=== PATIENT | female | born 1995 | race Caucasian/White ===

== ENCOUNTER 2023-09-10 17:24 | Emergency (ER) | payer OTHER ==
[~2023-09-10] VITALS: Ht 162.6 cm; Wt 106.1 kg
[2023-09-10 17:30] VITALS: BP 145/93; PULSE 77; RESP 17; TEMP 97.8; O2SAT 99
[2023-09-10] MEDS ORDERED: IBUP-1842 PO (17:51)
[2023-09-10] MEDS ORDERED: ACET-10509 PO (17:51)
[2023-09-10 19:22] LABS: FLU A ANTIGEN negative (NEGATIVE); FLU B ANTIGEN NEGATIVE (NEGATIVE)
== END 2023-09-10 18:24 | disposition home or self-care (01) ==
LOC: MED 17:24
DX: J06.9 Acute upper respiratory infection, unspecified (principal); Z20.822 Contact with and (suspected) exposure to COVID-19; E11.9 Type 2 diabetes mellitus without complications; I10 Essential (primary) hypertension; Z79.4 Long term (current) use of insulin; Z79.899 Other long term (current) drug therapy
CPT/HCPCS: 99283

== ENCOUNTER 2024-01-05 21:05 | Emergency (ER) | payer OTHER ==
[~2024-01-05] VITALS: Ht 152.4 cm; Wt 96.6 kg
[~2024-01-05 21:05] MED LIST: ACET-10509 PO; IBUP-1842 PO
[2024-01-05 21:44] VITALS: BP 127/67; PULSE 81; RESP 18; TEMP 98.5; O2SAT 98
[2024-01-06] MEDS: ACETAMINOPHEN EXTRA STRENGTH 500 MG TAB PO ONE (01:40)
[2024-01-06 02:00] LABS: BASOPHILS # (AUTO) 0.1 K/uL (0.00-0.22); BASOPHILS % (AUTO) 0.7 % (0.0-2.0); EOSINOPHILS # (AUTO) 0.2 K/uL (0-0.4); EOSINOPHILS % (AUTO) 2.3 % (0.0-4.0); HEMATOCRIT 36.5 % (36-48); HEMOGLOBIN 12.2 g/dL (12.0-16.0); LYMPHOCYTES # (AUTO) 4.1 K/uL (2.5-16.5); LYMPHOCYTES % (AUTO) 40.4 % (20.5-51.1); MEAN CORPUSCULAR HEMOGLOBIN 30 pg (27-31); MEAN CORPUSCULAR HGB CONC 34 g/dL (33-37); MEAN CORPUSCULAR VOLUME 89.5 fL (80-94); MONOCYTES # (AUTO) 0.6 K/uL (0.8-1.0); MONOCYTES % (AUTO) 6.1 % (1.7-9.3); NEUTROPHILS # (AUTO) 5.1 K/uL (1.8-7.7); NEUTROPHILS % (AUTO) 50.5 % (42.2-75.2); PLATELET COUNT (AUTO) 381 K/uL (140-450); RED BLOOD CELL COUNT(AUTO) 4.08 MIL/uL (4.20-5.40); RED CELL DISTRIBUTION WIDTH 14.2 % (11.6-13.7); WHITE BLOOD COUNT (AUTO) 10.1 K/uL (4.8-10.8)
[2024-01-06 02:31] LABS: ANION GAP 11.2 (8-16); CALCIUM 9.6 mg/dL (8.5-10.1); CARBON DIOXIDE 28.6 mmol/L (21-32); CREATININE 0.7 mg/dL (0.6-1.3); POTASSIUM 3.8 mmol/L (3.5-5.1)
[2024-01-06 02:50] VITALS: O2SAT 98
[2024-01-06] MEDS: KETOROLAC 30 MG/ML VIAL IM ONE (02:51)
== END 2024-01-06 03:53 | disposition home or self-care (01) ==
LOC: MED 21:05
DX: R51.9 Headache, unspecified (principal); R07.89 Other chest pain; E11.9 Type 2 diabetes mellitus without complications; I10 Essential (primary) hypertension; Z79.1 Long term (current) use of non-steroidal anti-inflammatories (NSAID)
CPT/HCPCS: 36415; 71045; 80048; 81025; 84484; 85025; 93005; 99285; Q0092

== ENCOUNTER 2024-03-28 15:29 | Emergency (ER) | payer OTHER ==
[~2024-03-28] VITALS: Ht 162.6 cm; Wt 96.2 kg
[~2024-03-28 15:29] MED LIST changes: -ACET-10509 PO; +ACET500T99 PO
[2024-03-28 15:46] VITALS: BP 136/58; PULSE 71; RESP 17; TEMP 98.4; O2SAT 99
[2024-03-28] MEDS ORDERED: ONDA-188 SL (16:22)
[2024-03-28] MEDS ORDERED: ACET500T99 PO (16:22)
[2024-03-28] MEDS ORDERED: IBUP-2218 PO (16:22)
[2024-03-28 16:25] VITALS: BP_DIAS 58
== END 2024-03-28 16:25 | disposition home or self-care (01) ==
LOC: MED 15:29
DX: F07.81 Postconcussional syndrome (principal); M54.2 Cervicalgia; R11.10 Vomiting, unspecified; E11.9 Type 2 diabetes mellitus without complications; I10 Essential (primary) hypertension; Z79.899 Other long term (current) drug therapy; W09.1XXA Fall from playground swing, initial encounter; Y92.89 Other specified places as the place of occurrence of the external cause; Y93.89 Activity, other specified; Y99.8 Other external cause status
CPT/HCPCS: 99283